=== PATIENT | female | born 1985 | race Caucasian/White ===

== ENCOUNTER → 2021-07-21 | Outpatient (CLI) | payer OTHER | LOC: LAB 16:21 | PROVIDERS: ATTEND Internal Medicine Pulmonary Disease | DX: M79.10 Myalgia, unspecified site (principal); R53.81 Other malaise; R51.9 Headache, unspecified; R09.81 Nasal congestion; Z20.822 Contact with and (suspected) exposure to COVID-19 | CPT/HCPCS: U0003; U0005 ==